=== PATIENT | male | born 1985 | race Two or more races ===

== ENCOUNTER 2022-11-03 11:14 | Emergency (ER) | payer OTHER ==
[~2022-11-03] VITALS: Ht 170.2 cm; Wt 68.0 kg
== END 2022-11-03 15:11 | disposition designated cancer center or children's hospital (05) ==
LOC: ER 11:14
DX: N48.33 Priapism, drug-induced (principal); T40.5X5A Adverse effect of cocaine, initial encounter; Y92.9 Unspecified place or not applicable